=== PATIENT | female | born 1955 | race Caucasian/White ===

== ENCOUNTER 2017-02-06 22:58 | Emergency (ER) | payer OTHER ==
[~2017-02-06] VITALS: Ht 157.5 cm; Wt 74.4 kg
--- NOTE | 2017-02-07 00:28 | ED GENERAL ADULT ---
History of Present Illness General Chief Complaint: General Adult Stated Complaint: HIGH GLUCOSE READING AT HOME [phone] Source: patient, family Exam Limitations: language barrier Vital Signs & Intake/Output Vital Signs & Intake/Output Vital Signs Date Time Temp Pulse Resp B/P Pulse O2 O2 Flow FiO2 Ox Delivery Rate 02/07 0232 98.0 66 18 158/82 97 Room Air 02/07 0200 97 Room Air 02/06 2307 97.9 66 20 179/80 96 Room Air ED Intake and Output 02/07 0000 02/06 1200 Intake Total Output Total Balance Patient 164 lb Weight Allergies Coded Allergies: No Known Allergies (02/06/17) Reconcile Medications Amlodipine Besylate 5 MG TABLET 1 TAB PO DAILY HIGH BLOOD PRESSURE Atenolol 100 MG TABLET 1 TAB PO DAILY HIGH BLOOD PRESSURE Blood Sugar Diagnostic (Test Strips) 1 EACH STRIP 1 STRIP IM TID DIABETES CHECK GLUCOSE BEFORE EACH MEAL.... ICD 10: e11 Enalapril Maleate 20 MG TABLET 1 TAB PO DAILY HIGH BLOOD PRESSURE Sitagliptin Phos/Metformin HCl (Janumet 50-500 MG Tablet) 50 MG-500 MG TABLET 1 TAB PO BID DIABETES Triage Note: RECEIVED 61 YO FEMALE WITH FAMILY JUSTM ARRIVED FROM [place] 3 DAYS AGO, C/O ELEVATED BLOOD SUGAR [phone] AT HOME. B.S. 342 IN TRIAGE. PT FEELS VERY TIRED WITH PAIN IN BACK OF HEAD. PT DENIES EXCESSIVE URINATION. PT TAKING MEDS FOR D.M. AND HTN. Triage Nurses Notes Reviewed? yes Onset: Gradual Duration: day(s): Timing: recent history Injury Environment: home Severity: mild Modifying Factors: Improves With: rest. Associated Symptoms: "I feel fine" HPI: 61-year-old woman history of diabetes and hypertension presents from [facility] 3 days ago. Today, she checked her glucose level. It was in the 400s. She notes that she feels well. She has no polydipsia or polyuria. She has no chest pain fever nausea vomiting diarrhea. She notes that in [facility] her glucose levels are usually in the mid 200s. She is otherwise well. Past History Travel History Traveled to [place] past 21 day No Medical History Any Pertinent Medical History? see below for history Neurological: NONE EENT: NONE Cardiovascular: hypertension Respiratory: NONE Gastrointestinal: NONE Hepatic: NONE Renal: NONE Musculoskeletal: NONE Psychiatric: NONE Endocrine: diabetes Blood Disorders: NONE Cancer(s): NONE Surgical History Surgical History: non-contributory Psychosocial History What is your primary language Syrian Tobacco Use: Never used Family History Hx Contributory? No Review of Systems Review of Systems Constitutional: Reports: no symptoms. EENTM: Reports: no symptoms. Respiratory: Reports: no symptoms. Cardiovascular: Reports: no symptoms. GI: Reports: no symptoms. Genitourinary: Reports: no symptoms. Musculoskeletal: Reports: no symptoms. Skin: Reports: no symptoms. Neurological/Psychological: Reports: no symptoms. Hematologic/Endocrine: Reports: no symptoms. Immunologic/Allergic: Reports: no symptoms. All Other Systems: Reviewed and Negative Physical Exam Physical Exam General Appearance: well developed/nourished, no apparent distress, alert, comfortable Head: atraumatic, normal appearance Eyes: Right: abnormal EOM. Bilateral: normal appearance. Ears, Nose, Throat: normal pharynx, normal ENT inspection Neck: normal inspection, supple, full range of motion Respiratory: normal breath sounds, chest non-tender, no respiratory distress, quiet respiration, lungs clear Cardiovascular: regular rate/rhythm Gastrointestinal: normal bowel sounds, soft, non-tender, no organomegaly Back: normal inspection, normal range of motion Extremities: normal inspection, normal capillary refill, normal range of motion, no edema Neurologic/Psych: no motor/sensory deficits, awake, alert, oriented x 3 Skin: intact, normal color, warm/dry Core Measures ACS in differential dx? No CVA/TIA Diagnosis: No Severe Sepsis Present: No Septic Shock Present: No Progress Differential Diagnoses I considered the following diagnoses in my evaluation of the patient: hyperglycemia vs dka vs other. Plan of Care: Orders Procedure Date/time Status MIXED VENOUS BLOOD GAS (GEN) 02/07 2304 Active LIPASE 02/07 2304 Complete COMPREHENSIVE METABOLIC PANEL 02/07 2304 Complete CBC WITHOUT DIFFERENTIAL 02/07 2304 Complete AMYLASE 02/07 2304 Complete ACETONE 02/07 2304 Complete Current Medications Sig/Michael Start time Last Medication Dose Stop Time Status Admin Insulin Human Regular 0 ONCE ONE 02/07 003 CAN (Novolin R) 02/07 0031 Laboratory Tests 02/07/17 0021: Anion Gap 9, Estimated GFR > 60, BUN/Creatinine Ratio 22.9, Glucose 354 H, Calcium 9.7, Total Bilirubin 0.4, AST 25, ALT 47, Alkaline Phosphatase 114, Total Protein 7.4, Albumin 4.3, Globulin 3.1, Albumin/Globulin Ratio 1.4, Amylase 72, Lipase 99, CBC w Diff NO MAN DIFF REQ, RBC 4.76, MCV 84.2, MCH 28.6, RDW 13.3, MPV 9.1, Gran % 46.7, Lymphocytes % 40.8, Monocytes % 8.1, Eosinophils % 4.0, Basophils % 0.4, Absolute Granulocytes 3.6, Absolute Lymphocytes 3.2, Absolute Monocytes 0.6, Absolute Eosinophils 0.3, Absolute Basophils 0, PUBS MCHC 34.0, Acetone Level NEGATIVE Initial ED EKG: none Departure Departure Disposition: HOME OR SELF CARE Condition: Stable Clinical Impression Primary Impression: Hyperglycemia Secondary Impressions: Hypertension Referrals: PATIENT HAS NO PRIMARY CARE DR (PCP/Family) Departure Forms: Customer Survey General Discharge Information Prescriptions: Current Visit Scripts Amlodipine Besylate 1 TAB PO DAILY #30 TAB Ref 2 Sitagliptin Phos/Metformin HCl (Janumet 50-500 MG Tablet) 1 TAB PO BID #60 TAB Ref 2 Enalapril Maleate 1 TAB PO DAILY #30 TAB Ref 2 Atenolol 1 TAB PO DAILY #30 TAB Ref 2 Blood Sugar Diagnostic (Test Strips) 1 STRIP IM TID #1 BOX Ref 6 CHECK GLUCOSE BEFORE EACH MEAL.... ICD 10: e11 Comments labs stable... follow up glucose is 200's...pt and family feel safe going home. ... I refilled her meds. Encouraged close follow up. Critical Care Note Critical Care Note Critical Care Time: non-applicable
[2017-02-07 00:30] LABS: ABSOLUTE BASOPHIL COUNT 0 /CUMM (0.0-0.2); ABSOLUTE EOSINOPHIL COUNT 0.3 /CUMM (0.0-0.7); ABSOLUTE GRANULOCYTE CT 3.6 /CUMM (1.4-6.5); ABSOLUTE LYMPH COUNT 3.2 /CUMM (1.2-3.4); ABSOLUTE MONOCYTE COUNT 0.6 /CUMM (0.10-0.60); BASOPHIL % 0.4 % (0.0-2.0); GRANULOCYTE % 46.7 % (42.2-75.2); HEMATOCRIT 40.1 % (37-47); MEAN CORPUSCULAR HGB 28.6 PG (27.0-31.0); MEAN CORPUSCULAR VOLUME 84.2 FL (81.0-99.0); MEAN PLATELET VOLUME 9.1 FL (7.4-10.4); PLATELET COUNT 240 /CUMM (130-400); RBC DISTRIBUTION WIDTH 13.3 % (11.5-14.5); RED BLOOD CELL CT 4.76 /CUMM (4.20-5.40); WHITE BLOOD CELL COUNT 7.8 /CUMM (4.8-10.8)
[2017-02-07] MEDS ORDERED: AMLODIPINE BESYL5 M1 PO (00:33)
[2017-02-07] MEDS ORDERED: ENALAPRIL MALEA20 M1 PO (00:33)
[2017-02-07] MEDS ORDERED: JANUMET 50-5001 EACH PO (00:33)
[2017-02-07] MEDS ORDERED: ATENOLOL100 M1 PO (00:33)
[2017-02-07] MEDS ORDERED: TEST STRIPS1 EACH IM (00:34)
[2017-02-07 02:32] VITALS: BP 158/82
== END 2017-02-07 02:35 ==
LOC: ERH 22:58
PROVIDERS: Pediatrics
DX: E11.65 Type 2 diabetes mellitus with hyperglycemia (principal); I10 Essential (primary) hypertension
CPT/HCPCS: 96361; 96374; 99291